=== PATIENT | female | born 1955 | race African-American/Black ===

== ENCOUNTER 2021-06-18 16:45 | Inpatient (IN) | payer MEDICAID ==
[~2021-06-18] VITALS: Ht 167.6 cm; Wt 138.8 kg
[2021-06-18 18:53] LABS: BASOPHILS % 0.3 % (0.0-2.0); HEMATOCRIT. 36.1 % (36.0-48.0); HEMOGLOBIN. 11.3 g/dL (12.0-16.0); LYMPHOCYTES % 12.2 % (20.0-50.0); MEAN CORPUSCULAR HEMOGLOBIN 31.3 pg (28.0-32.0); MEAN CORPUSCULAR VOLUME 99.8 fL (81.0-99.0); MEAN PLATELET VOLUME 9.3 fl (7.4-10.4); MONOCYTES % 8.2 % (2.0-8.0); NEUTROPHILS % 78.3 % (40.0-76.0); PLATELET 73 x1000/uL (130-400); RED BLOOD CELL COUNT 3.62 mill/uL (4.2-5.4); RED CELL DISTRIBUTION WIDTH 15.4 % (11.6-14.6)
[2021-06-18 18:57] LABS: CHLORIDE 103 mEq/L (98-107)
[2021-06-18] MEDS ORDERED: FUROSEMIDE 40MG/4ML VIAL IVP ONE (19:45)
[2021-06-18] MEDS ORDERED: METHYLPREDNISOLONE SOD SUCC 125 MG/2 ML VIAL IV ONE (20:00)
[2021-06-18] MEDS ORDERED: IPRATROPIUM/ALBUTEROL 0.5-3(2.5)MG/3ML NEB HHN ONE ×2 (20:00)
[2021-06-18] MEDS ORDERED: MAGNESIUM 1 G PREMIX 100 ML IV ONE (20:00)
[2021-06-19 11:30] VITALS: BP 151/90
[2021-06-19 11:35] VITALS: BP 151/90
[2021-06-19] MEDS: ACETAMINOPHEN 325MG TABLET PO PRN (12:57)
[2021-06-19] MEDS ORDERED: PNEUMOCOCCAL 23-VAL P-SAC VAC 0.5 ML IM ONE (15:15)
[2021-06-19] MEDS ORDERED: INFLUENZA VACCINE 05/PF 0.5 ML SYRINGE IM ONE (15:15)
[2021-06-19 16:00] VITALS: BP 124/26
[2021-06-19] MEDS: IPRATROPIUM/ALBUTEROL 0.5-3(2.5)MG/3ML NEB HHN PRN (16:33)
[2021-06-19 17:04] LABS: *AMPHETAMINES SCREEN URINE NEGATIVE (NEGATIVE); *BARBITURATES SCREEN URINE NEGATIVE (NEGATIVE); *BENZODIAZEPINES SCREEN URINE NEGATIVE (NEGATIVE)
[2021-06-19 17:05] LABS: *COCAINE SCREEN URINE NEGATIVE (NEGATIVE); CANNABINOID URINE SCREEN NEGATIVE (NEGATIVE); METHADONE URINE SCREEN NEGATIVE (NEGATIVE); OPIATES URINE SCREEN NEGATIVE (NEGATIVE); PHENCYCLIDINE URINE SCREEN NEGATIVE (NEGATIVE)
[2021-06-19] MEDS ORDERED: POTA10CA42 PO (17:07)
[2021-06-19] MEDS ORDERED: APIX5TAB PO (17:07)
[2021-06-19] MEDS ORDERED: CARV12.545 PO (17:07)
[2021-06-19] MEDS ORDERED: FURO40TA5 PO (17:07)
[2021-06-19] MEDS ORDERED: AMIO100T4 PO (17:07)
[2021-06-19] MEDS: FUROSEMIDE 40MG/4ML VIAL IVP SCH (17:33)
[2021-06-19 20:00] VITALS: BP 113/73
[2021-06-19] MEDS: GUAIFENESIN 600MG ER TABLET PO SCH (22:29)
[2021-06-20] MEDS: IPRATROPIUM/ALBUTEROL 0.5-3(2.5)MG/3ML NEB HHN PRN ×2 (01:05→04:27)
[2021-06-20 04:00] VITALS: BP 113/62
[2021-06-20] MEDS: ACETAMINOPHEN 325MG TABLET PO PRN ×2 (07:06→16:56)
[2021-06-20] MEDS: GUAIFENESIN-DM 200MG-20MG/10ML UDC PO PRN (07:06)
[2021-06-20 07:11] LABS: CHLORIDE 98 mEq/L (98-107)
[2021-06-20 07:21] LABS: BASOPHILS % 0.1 % (0.0-2.0); EOSINOPHILS % 0.3 % (0.0-5.0); HEMATOCRIT. 35.8 % (36.0-48.0); HEMOGLOBIN. 11.3 g/dL (12.0-16.0); LYMPHOCYTES % 14.9 % (20.0-50.0); MEAN CORPUSCULAR HEMOGLOBIN 31.8 pg (28.0-32.0); MEAN CORPUSCULAR VOLUME 100.3 fL (81.0-99.0); MEAN PLATELET VOLUME 9.7 fl (7.4-10.4); MONOCYTES % 8.1 % (2.0-8.0); NEUTROPHILS % 76.6 % (40.0-76.0); PLATELET 92 x1000/uL (130-400); RED BLOOD CELL COUNT 3.57 mill/uL (4.2-5.4); RED CELL DISTRIBUTION WIDTH 14.7 % (11.6-14.6)
[2021-06-20 08:00] VITALS: BP 99/69
[2021-06-20] MEDS: GUAIFENESIN 600MG ER TABLET PO SCH ×2 (08:42→20:21)
[2021-06-20] MEDS: FUROSEMIDE 40MG/4ML VIAL IVP SCH ×2 (08:43→16:55)
[2021-06-20] MEDS: KETOROLAC 30MG/ML VIAL IV PRN ×2 (11:35→17:43)
[2021-06-20 11:41] VITALS: BP 129/79
[2021-06-20 16:00] VITALS: BP 131/84
[2021-06-20] MEDS: ONDANSETRON HCL 4MG/2ML INJ IV PRN ×2 (17:46→23:44)
[2021-06-20] MEDS ORDERED: LACTULOSE 20G/30ML UDC PO PRN (19:45)
[2021-06-20 20:00] VITALS: BP 129/89
[2021-06-20 23:58] VITALS: BP 153/75
[2021-06-21 04:00] VITALS: BP 145/72
[2021-06-21 08:00] VITALS: BP 126/77
[2021-06-21] MEDS: KETOROLAC 30MG/ML VIAL IV PRN (09:43)
[2021-06-21] MEDS: GUAIFENESIN-DM 200MG-20MG/10ML UDC PO PRN ×2 (09:43→09:44)
[2021-06-21] MEDS: DOCUSATE SODIUM 250MG CAPSULE PO SCH (09:43)
[2021-06-21] MEDS: GUAIFENESIN 600MG ER TABLET PO SCH ×2 (11:03→22:35)
[2021-06-21] MEDS: FUROSEMIDE 40MG/4ML VIAL IVP SCH ×2 (11:04→16:22)
[2021-06-21 12:00] VITALS: BP 146/100
[2021-06-21] MEDS ORDERED: FURO40TA5 PO (12:26)
[2021-06-21] MEDS ORDERED: ALBU18HF2 IH (12:27)
[2021-06-21] MEDS ORDERED: FLUT1DIS3 INH (12:27)
[2021-06-21] MEDS: ONDANSETRON HCL 4MG/2ML INJ IV PRN (12:50)
[2021-06-21] MEDS ORDERED: NA PHOS,M-B/NA PHOS,DI-BA ENEMA 118ML PR NR (13:15)
[2021-06-21 16:00] VITALS: BP 114/76
[2021-06-21] MEDS: ACETYLCYSTEINE 100MG/ML 10% VIAL 4ML INH SCH (16:32)
[2021-06-21] MEDS: IPRATROPIUM/ALBUTEROL 0.5-3(2.5)MG/3ML NEB HHN PRN (16:33)
[2021-06-21] MEDS ORDERED: LACTULOSE 20G/30ML UDC PO NR (19:00)
[2021-06-21 20:00] VITALS: BP 140/83
[2021-06-21] MEDS: ACETAMINOPHEN 325MG TABLET PO PRN (22:49)
[2021-06-22] VITALS: BP 121/74
[2021-06-22] MEDS: IPRATROPIUM/ALBUTEROL 0.5-3(2.5)MG/3ML NEB HHN PRN ×3 (00:01→16:42)
[2021-06-22] MEDS: ACETYLCYSTEINE 100MG/ML 10% VIAL 4ML INH SCH ×2 (00:02→10:02)
[2021-06-22] MEDS: KETOROLAC 30MG/ML VIAL IV PRN ×2 (00:35→09:21)
[2021-06-22 04:00] VITALS: BP 119/75
[2021-06-22 08:00] VITALS: BP 126/71
[2021-06-22] MEDS: DOCUSATE SODIUM 250MG CAPSULE PO SCH (09:20)
[2021-06-22] MEDS: FUROSEMIDE 40MG/4ML VIAL IVP SCH (09:20)
[2021-06-22] MEDS: GUAIFENESIN 600MG ER TABLET PO SCH (09:20)
[2021-06-22] MEDS ORDERED: APIX5TAB PO (11:22)
[2021-06-22] MEDS ORDERED: GUAI600T26 MT (11:22)
[2021-06-22] MEDS ORDERED: CARV12.545 PO (11:22)
[2021-06-22] MEDS ORDERED: AMIO100T4 PO (11:22)
[2021-06-22] MEDS ORDERED: POTA10CA42 PO (11:22)
[2021-06-22 12:00] VITALS: BP 126/72
[2021-06-22 12:02] LABS: CLARITY URINE CLEAR (CLEAR); COLOR URINE YELLOW (YELLOW); KETONES URINE NEGATIVE (NEGATIVE); LEUKOCYTE ESTERASE URINE TRACE (NEGATIVE); NITRITE URINE NEGATIVE (NEGATIVE); OCCULT BLOOD URINE NEGATIVE (NEGATIVE); PROTEIN URINE NEGATIVE (NEGATIVE); SPECIFIC GRAVITY URINE 1.009 (1.005-1.030)
[2021-06-22 14:08] VITALS: BP 126/72
[2021-06-22 15:46] VITALS: BP 120/79
== END 2021-06-22 17:17 | disposition home or self-care (01) | DRG 133 ==
LOC: ER 16:45 → 6WST 19:44 → EDBEDREQTM 19:49 → EDBEDREQ 19:49 → ENRESERV 06-19 07:20
PROVIDERS: ADMIT Internal Medicine; ATTEND Internal Medicine
DX: J96.21 Acute and chronic respiratory failure with hypoxia (principal); I50.33 Acute on chronic diastolic (congestive) heart failure; D69.6 Thrombocytopenia, unspecified; I27.20 Pulmonary hypertension, unspecified; I48.91 Unspecified atrial fibrillation; I11.0 Hypertensive heart disease with heart failure; D72.819 Decreased white blood cell count, unspecified; E66.9 Obesity, unspecified; I34.0 Nonrheumatic mitral (valve) insufficiency; J44.9 Chronic obstructive pulmonary disease, unspecified; Z20.822 Contact with and (suspected) exposure to COVID-19; L60.2 Onychogryphosis; I73.9 Peripheral vascular disease, unspecified; S80.822A Blister (nonthermal), left lower leg, initial encounter; X58.XXXA Exposure to other specified factors, initial encounter; S80.821A Blister (nonthermal), right lower leg, initial encounter; Y93.89 Activity, other specified; Y92.89 Other specified places as the place of occurrence of the external cause; Y99.8 Other external cause status; Z68.42 Body mass index [BMI] 45.0-49.9, adult; Z88.5 Allergy status to narcotic agent; Z91.018 Allergy to other foods; Z71.3 Dietary counseling and surveillance
CPT/HCPCS: 36415; 71045; 80048; 80053; 80305; 81003; 83880; 84484; 85025; 87426; 90686; 90732; 93005; 93306; 93923; 94640; 99291; C1893; J1885; J1940; J2405; J2930; J3475; J7608